=== PATIENT | female | born 2000 | race Caucasian/White ===

== ENCOUNTER 2019-09-15 21:14 | Emergency (ER) | payer OTHER, BC ==
--- NOTE | 2019-09-15 21:46 | ED ---
General Adult HPI - General Chief complaint: Psychiatric Symptoms Stated complaint: Mental Health Time Seen by Provider: 09/15/19 21:21 Source: patient Mode of arrival: ambulatory Limitations: no limitations - History of Present Illness Initial comments: Dictation was produced using [employer] dictation software. please excuse any grammatical, word or spelling errors. Chief Complaint: 19-year-old female brought in by law enforcement for suicidal ideation. History of Present Illness: 19-year-old female she is here today with law enforcement. Patient allegedly got into confrontation with her sibling and mother. Cor interpretation patient threatened suicide. She states she is not suicidal now. She states she said that she was upset. Patient denies a history of suicidal attempt. She has no specific plan. No homicidal ideation. No psychiatric history. She is slightly apologetic for what she said. She states she didn't mean it. Any medical complaints. Petition reviewed. According to petition patient threatened suicide multiple times today. The ROS documented in this emergency department record has been reviewed and confirmed by me. Those systems with pertinent positive or negative responses have been documented in the HPI. All other systems are other negative and/or noncontributory. PHYSICAL EXAM: General Impression: Alert and oriented x3, not in acute distress HEENT: Normocephalic atraumatic, extra-ocular movements intact, pupils equal and reactive to light bilaterally, mucous membranes moist. Cardiovascular: Heart regular rate and rhythm, S1&S2 audible, no murmurs, rubs or gallops Chest: Lungs clear to auscultation bilaterally, no rhonchi, no wheeze, no rales Abdomen: Bowel sounds present, abdomen soft, non-tender, non-distended, no organomegaly Musculoskeletal: Pulses present and equal in all extremities, no peripheral edema Motor: no focal deficits noted Neurological: CN II-XII grossly intact, no focal motor or sensory deficits noted Skin: Intact with no visualized rashes Psych: Normal affect and mood ED course: 19-year-old female presents with suicidal behavior. Condition is filled by law enforcement. As upon arrival are within acceptable limits. Physical examination is benign. Patient medically cleared for EPS evaluation. Patient was evaluated by EPS. Patient will be discharged. CT plan discussed with patient. Patient is agreeable. - Related Data Allergies Allergy/AdvReac Type Severity Reaction Status Date / Time No Known Allergies Allergy Verified 09/15/19 21:18 Review of Systems ROS Statement: Those systems with pertinent positive or pertinent negative responses have been documented in the HPI. ROS Other: All systems not noted in ROS Statement are negative. Past Medical History Past Medical History: No Reported History History of Any Multi-Drug Resistant Organisms: None Reported Past Surgical History: No Surgical Hx Reported Past Psychological History: No Psychological Hx Reported Smoking Status: Never smoker Past Alcohol Use History: None Reported Past Drug Use History: Marijuana General Exam Limitations: no limitations Course Vital Signs 09/15/19 09/15/19 21:15 22:20 Temperature 98.8 F 97.6 F Pulse Rate 77 55 L Respiratory 18 16 Rate Blood Pressure 127/80 122/76 O2 Sat by Pulse 98 99 Oximetry Medical Decision Making - Lab Data Lab Results 09/15/19 Range/Units 21:27 Urine Opiates Screen Not Detected (NotDetected) Ur Oxycodone Screen Not Detected (NotDetected) Urine Methadone Screen Not Detected (NotDetected) Ur Propoxyphene Screen Not Detected (NotDetected) Ur Barbiturates Screen Not Detected (NotDetected) U Tricyclic Antidepress Not Detected (NotDetected) Ur Phencyclidine Scrn Not Detected (NotDetected) Ur Amphetamines Screen Not Detected (NotDetected) U Methamphetamines Scrn Not Detected (NotDetected) U Benzodiazepines Scrn Not Detected (NotDetected) Urine Cocaine Screen Not Detected (NotDetected) U Marijuana (THC) Screen Detected H (NotDetected) Disposition Clinical Impression: Suicidal behavior Disposition: HOME SELF-CARE Condition: Good Instructions (If sedation given, give patient instructions): Help Prevent Suicide (ED) Is patient prescribed a controlled substance at d/c from ED?: No Referrals: Nonstaff,Physician [Primary Care Provider] - 1-2 days Time of Disposition: 23:23
[2019-09-15 21:54] LABS: Amphetamine Screen,Urine Not Detected (NotDetected); Barbiturate Screen,Urine Not Detected (NotDetected); Benzodiazepines Screen,Urine Not Detected (NotDetected); Cocaine Screen,Urine Not Detected (NotDetected); Methadone Screen, Urine Not Detected (NotDetected); Opiate Screen,Urine Not Detected (NotDetected); Oxycodone Screen, Urine Not Detected (NotDetected); Phencyclidine Screen,Urine Not Detected (NotDetected); Tricyclic Antidepressant,Urine Not Detected (NotDetected); Urn Cannabinoid Scrn Detected (NotDetected)
[2019-09-15 22:21] VITALS: BP 122/76; PULSE 55; RESP 16; TEMP 97.6
== END 2019-09-15 23:30 | disposition home or self-care (01) ==
LOC: EC 21:14
DX: R45.851 Suicidal ideations (principal)
CPT/HCPCS: 80306; 82075; 99285

== ENCOUNTER → 2024-10-15 | Outpatient (CLI) | payer BC ==
--- NOTE | 2024-10-15 09:45 | MR ---
INDICATION: Patient age:Female; 24 years old; Reason for study: M54.16 radiculopathy; [facility]. COMPARISONS: Scoliosis radiograph 03/28/2013. TECHNIQUE: Multi planar, multi sequence imaging was performed utilizing: T1-weighted, T2-weighted, a nd turbo inversion recovery imaging of the lumbar spine. The patient was not given contrast. FINDINGS: The lumbar vertebral bodies do have preserved heights and alignment. Disc desiccation wit hout significant height loss at L4-L5. No abnormal STIR signal. The conus medullaris and the distal spinal cord do appear unremarkable with regards to their signal intensity and morphology. T12-L1: No significant disc pathology is identified. The spinal canal and neural foramen are patent L1-L2: No significant disc pathology is identified. The spinal canal and neural foramen are patent. L2-L3: No significant disc pathology is identified. The spinal canal and neural foramen are patent. L3-L4: No significant disc pathology is identified. The spinal canal and neural foramen are patent. L4-L5: Central disc protrusion with annular fissure. Results in minimal effacement of the anterior th ecal sac. No definitive abutment of the exiting and traversing nerve roots. No significant central ca nal stenosis. The right neural foramen is patent. Minimal left neural foraminal narrowing. L5-S1: No significant disc pathology is identified. The spinal canal and neural foramen are patent Other significant findings: None. IMPRESSION: L4-L5 central disc protrusion with annular fissure. No significant central canal or neuroforaminal st enosis at any lumbar level. [facility], , 10/15/2024 9:42 AM
== END | disposition home or self-care (01) ==
LOC: RADMRIMAIN 08:16
PROVIDERS: ATTEND Family Medicine
DX: M51.16 Intervertebral disc disorders with radiculopathy, lumbar region (principal)
CPT/HCPCS: 72148